=== PATIENT | male | born 1995 | race Caucasian/White ===

== ENCOUNTER 2021-01-21 13:17 | Outpatient (CLI) | payer OTHER ==
--- NOTE | 2021-01-21 15:23 | XRAY Report ---
PROCEDURE: Arthrogram Needle Placement INDICATIONS: RT SHOULDER PAIN CONTRAST: Intra-articular dilute gadolinium contrast material FLUOROSCOPY TIME: FLUORO TIME: 0.4 min and NUMBER IMAGES: 1 TECHNIQUE: The indications, alternatives, benefits, risks, and complications of the procedure were explained to the patient. Written informed consent was obtained and placed in the chart. The shoulder was examin ed fluoroscopically and a site for needle placement chosen for entry into the glenohumeral joint from an anterior approach. The skin was prepped and draped in the usual fashion, and 1% lidocaine infilt rated from skin down to joint capsule. A spinal needle was inserted into the glenohumeral joint, and a small amount of iodinated contrast media injected to confirm intra-articular placement of the need le tip. This was followed by approximately 12 mL dilute solution of a gadolinium containing MR contr ast agent. The needle was removed and a dressing was applied. The patient was given postprocedural instructions and sent to the MR suite for MR imaging. FINDINGS: A single fluoroscopic spot image demonstrates intra-articular location of injected iodinated contrast . IMPRESSION: Successful fluoroscopically guided administration of dilute Gadolinium solution into the shoulder pari nt for MR arthrogram. Reviewed by: Ricardo Vasquez MD on 01/21/2021 3:22 PM PST Approved by: Ricardo Vasquez MD on 01/21/2021 3:22 PM PST Station ID: [id number]
--- NOTE | 2021-01-21 15:33 | MRI Report ---
PROCEDURE: Arthrogram Shoulder RT INDICATIONS: RT SHOULDER PAIN CONTRAST: Dilute intra-articular gadolinium contrast material. TECHNIQUE: After the administration of 12 mL of dilute intra-articular Gadolinium contrast, oblique coronal T1 a nd T2 spin echo with fat saturation, oblique sagittal T1 spin echo with and without fat saturation, o blique sagittal T2 fast spin echo with fat saturation, axial T1 spin echo with fat saturation through the shoulder. COMPARISON: None. FINDINGS: Image quality: Excellent. Rotator cuff: Supraspinatus, infraspinatus, teres minor and subscapularis tendons appear intact. No atrophy of the rotator cuff muscles identified. Bones and bursae: No bone marrow contusions or fractures. Moderate acromioclavicular joint degeneration. There is minimal glenohumeral articular cartilage los s. The acromion demonstrates conventional anatomy, without an os acromiale. No subacromial/subdeltoid bursal fluid is present. Capsule and soft tissues: Labrum: Blunted appearance of the posterior inferior labrum, with reactive degenerative sclerosis and spurring seen in the adjacent glenoid rim. Findings compatible with chronic labral tear. There is il l-defined fraying/degeneration of the superior labrum, for example image 12/501. The long head of the biceps tendon demonstrates normal location and morphology. The rotator interval appears normal, without fibrosis. The coracohumeral ligament is normal in thickness. IMPRESSION: Chronic appearing posteroinferior labral tear with reactive degenerative changes in the adjacent makayla oid rim. Mild ill-defined fraying of the superior labrum. No rotator cuff tear Reviewed by: Ricardo Vasquez MD on 01/21/2021 3:31 PM PST Approved by: Ricardo Vasquez MD on 01/21/2021 3:31 PM PST Station ID: [id number]
== END 2021-01-21 13:18 | disposition home or self-care (01) ==
LOC: DI 13:17
DX: M25.511 Pain in right shoulder (principal); S43.401A Unspecified sprain of right shoulder joint, initial encounter
CPT/HCPCS: 23350; 73222; 77002; A9585